=== PATIENT | male | born 1970 | race Hispanic/Latino ===

== ENCOUNTER → 2021-10-29 | Outpatient (CLI) | payer BC | END | disposition home or self-care (01) | LOC: RAH 10:25 | PROVIDERS: ATTEND Family Medicine | DX: S39.92XA Unspecified injury of lower back, initial encounter (principal); M51.16 Intervertebral disc disorders with radiculopathy, lumbar region; M48.061 Spinal stenosis, lumbar region without neurogenic claudication; X58.XXXA Exposure to other specified factors, initial encounter; Y93.89 Activity, other specified; Y92.89 Other specified places as the place of occurrence of the external cause; Y99.8 Other external cause status | CPT/HCPCS: 72148 ==

== ENCOUNTER → 2024-07-23 | Outpatient (CLI) | payer BC ==
--- NOTE | 2024-07-23 15:58 | HMCIMG ---
Exam Type: CT ABDOMEN/PELVIS W/O CONTRAST Clinical Information: RENAL STONE Comparison: None CT Dose Index (CTDI): 10.20 mGy Dose Length Product (DLP): 530.00 total mGy-cm PROTOCOL: Routine noncontrast helical scanning of the abdomen and pelvis was performed at 5mm collimation. Findings: No evidence of nephro or ureterolithiasis is found. No hydronephrosis or ureteral dilatation is seen. The lung bases are clear. The stomach is unremarkable. It shows no wall thickening. No gross ulceration is seen. It is not overly distended. There are no surrounding inflammatory changes. No wall lesions are identified to suggest cancer. The spleen is unremarkable. It is not enlarged. The pancreas shows normal anatomy. It is not fatty replaced. It shows no lesions. The pancreatic duct is not dilated. The gallbladder is unremarkable. It shows no cholelithiasis. The gallbladder wall is normal in thickness. There is no pericholecystic fluid. The is no acute or chronic inflammation noted. The adrenal glands are unremarkable. There is no enlargement. No lesions are noted. The liver is unremarkable. It shows no focal masses. The appendix is unremarkable. It shows no evidence of inflammation. No appendicolith is seen. The small bowel is unremarkable. There is no evidence of dilatation to suggest obstruction. No evidence of adynamic ileus is seen. There is no small bowel wall thickening to suggest enteritis. The colon is unremarkable. The urinary bladder is unremarkable. There is no wall thickening to suggest tumor or inflammation. There are no intraluminal calculi. There are no diverticula. There is no evidence of chronic bladder outlet obstruction. There is no evidence of urinary bladder distention to suggest urinary retention. The other pelvic structures are unremarkable. The bony and vascular structures are unremarkable for the patient's age. IMPRESSION: NEGATIVE CT SCAN OF THE ABDOMEN AND PELVIS. NO RENAL STONES. NO ACUTE PATHOLOGY OR INFLAMMATION SEEN. This study was performed using dose reduction techniques to include automated exposure control and/or adjustment of the mA and/or kV according to patient size.
== END | disposition home or self-care (01) ==
LOC: RAH 13:29
PROVIDERS: ATTEND Internal Medicine
DX: N20.0 Calculus of kidney (principal); I10 Essential (primary) hypertension; E78.2 Mixed hyperlipidemia
CPT/HCPCS: 74176